=== PATIENT | female | born 1930 | race Caucasian/White ===

== ENCOUNTER 2020-11-29 08:19 | Day surgery (SDC) | payer OTHER ==
[2020-11-26 12:32] VITALS: BMI 15.1
[2020-11-29 12:38] VITALS: BP 145/65; PULSE 65; TEMP 97.1
== END 2020-11-29 13:07 | disposition short-term general hospital (02) ==
LOC: FASU-ENDO 08:19
PROVIDERS: ATTEND Internal Medicine Gastroenterology
PROC: 0DBL8ZX Excision of Transverse Colon, Via Natural or Artificial Opening Endoscopic, Diagnostic (ICD-10-PCS; 2020-11-29)
PROC: 0DBH8ZX Excision of Cecum, Via Natural or Artificial Opening Endoscopic, Diagnostic (ICD-10-PCS; 2020-11-29)
PROC: 0DBH8ZX Excision of Cecum, Via Natural or Artificial Opening Endoscopic, Diagnostic (ICD-10-PCS; 2020-11-29)
PROC: 0DBK8ZX Excision of Ascending Colon, Via Natural or Artificial Opening Endoscopic, Diagnostic (ICD-10-PCS; principal; 2020-11-29 11:36)
DX: D12.0 Benign neoplasm of cecum (principal); D12.2 Benign neoplasm of ascending colon; K59.00 Constipation, unspecified
CPT/HCPCS: 88305-TC

== ENCOUNTER 2021-03-31 16:36 | Observation (INO) | payer OTHER ==
[2021-03-31] MEDS ORDERED: SOTROVIMAB 500 MG in SODIUM CHLORIDE 100 ML IVPB ONE (17:39)
[2021-03-31] MEDS ORDERED: REMDESIVIR 200 MG in SODIUM CHLORIDE 250 ML IVPB ONE (17:39)
[2021-03-31 18:34] LABS: BASO % 1.5 % (0-2.0); EOS % 1.1 % (0-4.5); HEMATOCRIT 34.4 % (32.4-45.2); HEMOGLOBIN 11.3 GM/dL (10.7-15.3); LYMPH % 30.3 % (8-40); MCH 29.7 pg (25.7-33.7); MCHC 32.8 g/dl (32.0-36.0); MEAN CELL VOLUME 90.7 fl (80-96); MEAN PLT VOLUME 9.8 fl (7.5-11.1); MONO % 9.7 % (3.8-10.2); NEUT % 57.4 % (42.8-82.8); PLATELET COUNT 151 10^3/uL (134-434); RBC 3.79 M/mm3 (3.60-5.2); RDW 15.7 % (11.6-15.6); WHITE BLOOD COUNT 5.5 K/mm3 (4.0-10.0)
[2021-03-31 19:00] LABS: CHLORIDE 107 mmol/L (98-107); SODIUM 135 mmol/L (136-145)
[2021-03-31 19:03] LABS: ALBUMIN 3.1 g/dl (3.4-5.0); BLOOD UREA NITROGEN 43.4 mg/dL (7-18); CALCIUM 8.6 mg/dL (8.5-10.1); CO2 22 mmol/L (21-32); GLUCOSE,RANDOM 83 mg/dL (74-106)
[2021-03-31 19:06] LABS: CREATININE 2.2 mg/dL (0.55-1.3); SGOT/AST 33 U/L (15-37); SGPT/ALT 14 U/L (13-61)
[2021-03-31 19:07] LABS: TOT PROT 6.8 g/dl (6.4-8.2)
[2021-03-31 19:08] LABS: BILIRUBIN,TOTAL 0.4 mg/dL (0.2-1)
[2021-03-31 19:09] LABS: ALK PHOS 72 U/L (45-117)
[2021-03-31 19:14] LABS: ANION GAP 6 MMOL/L (8-16)
[2021-03-31 20:33] LABS: CHLORIDE 108 mmol/L (98-107); SODIUM 137 mmol/L (136-145)
[2021-03-31 20:36] LABS: ANION GAP 8 MMOL/L (8-16); BLOOD UREA NITROGEN 42.9 mg/dL (7-18); CALCIUM 8.5 mg/dL (8.5-10.1); CO2 21 mmol/L (21-32); GLUCOSE,RANDOM 142 mg/dL (74-106)
[2021-03-31 20:39] LABS: CREATININE 2.1 mg/dL (0.55-1.3)
[2021-03-31 22:19] LABS: EPI CELLS 10 /uL (0-25.1); HYALINE CASTS 1 /uL (0-3.1); PH,URINE 6.5 (5.0-8.0); URINE APPEARANCE CLEAR; URINE BACTERIA 54 /uL (0-1359); URINE BILIRUBIN NEGATIVE (NEGATIVE); URINE COLOR YELLOW; URINE GLUCOSE (UA) TRACE (NEGATIVE); URINE KETONE NEGATIVE (NEGATIVE); URINE LEUK ESTERASE TRACE (NEGATIVE); URINE NITRITE NEGATIVE (NEGATIVE); URINE PROTEIN 1+ (NEGATIVE); URINE RBC 3 /uL (0-23.9); URINE UROBILINOGEN 0.2 mg/dL (0.2-1.0); URINE WBC 50 /uL (0-25.8)
[2021-04-01] MEDS ORDERED: DOCUSATE SODIUM 100 MG CAPSULE (FP) PO PRN (00:12)
[2021-04-01] MEDS ORDERED: ACETAMINOPHEN 325 MG TABLET (FP) PO SCH (00:15)
[2021-04-01] MEDS ORDERED: LACTULOSE 20 GM/30 ML UDC (FOR ORAL USE ONLY) PO PRN (00:48)
[2021-04-01] MEDS ORDERED: ACETAMINOPHEN 325 MG TABLET (FP) PO PRN (01:00)
[2021-04-01] MEDS: HEPARIN NA (PORCINE) 5,000 UNITS/ML 1ML VIAL SQ SCH ×3 (05:12→22:26)
[2021-04-01] MEDS: LEVOTHYROXINE NA 25 MCG TABLET (FP) PO SCH (06:01)
[2021-04-01 06:48] VITALS: BMI 14.2
[2021-04-01] MEDS: CHOLECALCIFEROL (VIT D3) 1,000 UNIT (25 MCG) TABLET PO SCH (10:28)
[2021-04-01] MEDS: ASPIRIN COATED 81 MG TABLET.EC PO SCH (10:28)
[2021-04-01] MEDS: POLYETHYLENE GLYCOL (HEALTHYLAX) 3350 17 GM PACKET PO SCH ×2 (10:28→10:59)
[2021-04-01] MEDS: SODIUM BICARBONATE 650 MG TABLET PO SCH ×2 (10:28→22:27)
[2021-04-01] MEDS: FERROUS SO4 325 MG TABLET (FP) PO SCH (10:28)
[2021-04-01] MEDS: PANTOPRAZOLE 40 MG TABLET PO SCH (10:28)
[2021-04-01] MEDS: LORATADINE 10 MG TABLET PO SCH (10:28)
[2021-04-01 10:33] LABS: HEMATOCRIT 33.5 % (32.4-45.2); MEAN CELL VOLUME 91.1 fl (80-96); MEAN PLT VOLUME 9.9 fl (7.5-11.1); PLATELET COUNT 160 10^3/uL (134-434); RBC 3.68 M/mm3 (3.60-5.2); RDW 15.6 % (11.6-15.6); WHITE BLOOD COUNT 4.8 K/mm3 (4.0-10.0)
[2021-04-01 11:05] LABS: ALBUMIN 2.8 g/dl (3.4-5.0); BLOOD UREA NITROGEN 41.8 mg/dL (7-18); CALCIUM 8.5 mg/dL (8.5-10.1)
[2021-04-01 11:09] LABS: PHOSPHOROUS 3.6 mg/dL (2.5-4.9)
[2021-04-01 11:10] LABS: BILIRUBIN,TOTAL 0.2 mg/dL (0.2-1); TOT PROT 6.1 g/dl (6.4-8.2)
[2021-04-01] MEDS ORDERED: HEPARIN NA (PORCINE) 5,000 UNITS/ML 1ML VIAL SQ SCH (22:00)
[2021-04-01] MEDS ORDERED: ATORVASTATIN CA 10 MG TABLET (FP) PO SCH (22:00)
[2021-04-01] MEDS ORDERED: SENNOSIDES 8.6MG TABLET (FP) PO SCH (22:00)
[2021-04-02] MEDS: HEPARIN NA (PORCINE) 5,000 UNITS/ML 1ML VIAL SQ SCH ×2 (06:31→13:45)
[2021-04-02] MEDS: LEVOTHYROXINE NA 25 MCG TABLET (FP) PO SCH (06:31)
[2021-04-02] MEDS: ASPIRIN COATED 81 MG TABLET.EC PO SCH (09:01)
[2021-04-02] MEDS: POLYETHYLENE GLYCOL (HEALTHYLAX) 3350 17 GM PACKET PO SCH ×2 (09:01→09:07)
[2021-04-02] MEDS: PANTOPRAZOLE 40 MG TABLET PO SCH (09:01)
[2021-04-02] MEDS: FERROUS SO4 325 MG TABLET (FP) PO SCH (09:01)
[2021-04-02] MEDS: SODIUM BICARBONATE 650 MG TABLET PO SCH (09:01)
[2021-04-02] MEDS: CHOLECALCIFEROL (VIT D3) 1,000 UNIT (25 MCG) TABLET PO SCH (09:01)
[2021-04-02] MEDS: LORATADINE 10 MG TABLET PO SCH (09:02)
[2021-04-02 09:55] LABS: CALCIUM 8.1 mg/dL (8.5-10.1)
[2021-04-02 09:56] LABS: BLOOD UREA NITROGEN 47.6 mg/dL (7-18)
[2021-04-02 09:59] LABS: CREATININE 2.1 mg/dL (0.55-1.3)
[2021-04-02 20:16] VITALS: BP 179/75; PULSE 64; TEMP 97.8
== END 2021-04-02 20:21 | disposition short-term general hospital (02) ==
LOC: JER 16:36 → JERBED 19:18 → UNDOADMOB 19:18 → INTOOBSV 19:18 → JERBED 04-01 01:00 → J5S 04-01 01:00 → JERBED 04-01 08:52 → J5S 04-01 08:52
PROVIDERS: ADMIT Hospitalist
PROC: 3E023GC Introduction of Other Therapeutic Substance into Muscle, Percutaneous Approach (ICD-10-PCS; principal; 2021-04-01)
PROC: 3E033GC Introduction of Other Therapeutic Substance into Peripheral Vein, Percutaneous Approach (ICD-10-PCS; 2021-04-01)
DX: U07.1 COVID-19 (principal); I12.9 Hypertensive chronic kidney disease with stage 1 through stage 4 chronic kidney disease, or unspecified chronic kidney disease; N18.9 Chronic kidney disease, unspecified; K21.9 Gastro-esophageal reflux disease without esophagitis; F03.90 Unspecified dementia, unspecified severity, without behavioral disturbance, psychotic disturbance, mood disturbance, and anxiety; Z95.1 Presence of aortocoronary bypass graft; R53.1 Weakness; R53.81 Other malaise; D64.9 Anemia, unspecified; N17.9 Acute kidney failure, unspecified; R79.89 Other specified abnormal findings of blood chemistry; Z29.9 Encounter for prophylactic measures, unspecified
CPT/HCPCS: 36415; 71045-TC-FY; 76775-TC; 80048; 80053; 81003; 82550; 82570; 83735; 84100; 84156; 84300; 84484; 85025; 85027; 93005; 93010; 96365; 96367; 96372; 97116-GP; 97162-GP; 99285-25; C9399; C9803; G0378; J1644; M0247; Q0247; U0003; U0005